=== PATIENT | male | born 1960 | race Caucasian/White ===

== ENCOUNTER 2023-04-20 10:18 | Outpatient (CLI) | payer SELFPAY | END 2023-04-20 10:19 | disposition home or self-care (01) | PROVIDERS: PCP Family Medicine; Visit Provider Physician Assistant Medical | DX: Z00.00 Encounter for general adult medical examination without abnormal findings (principal); I10 Essential (primary) hypertension; R20.0 Anesthesia of skin; R73.03 Prediabetes; E78.5 Hyperlipidemia, unspecified; E66.9 Obesity, unspecified; Z12.5 Encounter for screening for malignant neoplasm of prostate; Z13.29 Encounter for screening for other suspected endocrine disorder | CPT/HCPCS: 80053; 80061; 82607; 84153; 84443; 87086 ==

== ENCOUNTER 2025-01-03 07:30 | Outpatient (RCR) | payer OTHER, SELFPAY | END 2025-05-03 23:59 | disposition home or self-care (01) | PROVIDERS: PCP Physician Assistant Medical; Visit Provider Orthopaedic Surgery | DX: M54.12 Radiculopathy, cervical region (principal); M79.601 Pain in right arm; M25.511 Pain in right shoulder; Z51.89 Encounter for other specified aftercare | CPT/HCPCS: 97032; 97110; 97140; 97162 ==

== ENCOUNTER 2025-01-08 06:57 | Outpatient (CLI) | payer OTHER, SELFPAY ==
--- NOTE | 2025-01-08 07:15 | CRLHL7_ITS ---
For Patients: As a result of the Century Cures Act, medical imaging exams and procedure reports are released immediately into your electronic medical record. You may view this report before your referring provider. If you have questions, please contact your health care provider. INDICATION: Radiculopathy. COMPARISON: 12/14/2024. Technique Sagittal T1, T2, and STIR sequences. Axial T2/gradient sequences. FINDINGS: Straightening of the normal cervical lordosis. Otherwise, normal vertebral body facet alignment. No fractures. No vertebral body loss of height. No spondylolisthesis. No ligamentous injury. No suspicious osseous lesions. Normal cord signal. No intradural mass or lesion. C1-2: No spinal canal narrowing. C2-3: Mild generation posterior disc bulge. No narrowing of spinal canal. Uncovertebral joint hypertrophy results in moderate narrowing of left neural foramen. No narrowing of the right neural foramen. C3-4: Disc degeneration broad-based disc osteophyte complex. Moderate narrowing of spinal canal. Moderate severe narrowing of the bilateral foramina. Potential impingement of the C4 nerve roots. C4-5: Disc degeneration and shallow right paracentral disc bulge or disc osteophyte complex. Mild narrowing of spinal canal. Moderate severe right and moderate left neural foraminal narrowing. Potential impingement of the right C5 nerve root. C5-6: Disc generation broad-based disc osteophyte complex. Moderate narrowing of spinal canal. Moderate severe narrowing of bilateral foramina. Potential impingement of the C6 nerve roots. C6-7: Disc generation and posterior disc bulge or disc osteophyte complex. Moderate to severe narrowing of spinal canal. Moderate severe narrowing of the bilateral foramina potential impingement of the C7 nerve roots. C7-T1: No spinal canal or neural foraminal narrowing. IMPRESSION: 1. Straightening of the normal cervical lordosis. Otherwise, normal alignment. No fractures. 2. Normal cord signal. 3. At C2-3, moderate narrowing of the left neural foramen. 4. At C3-4, moderate narrowing of the spinal canal. Moderate to severe narrowing of the bilateral neural foramina 5. At C4-5, moderate to severe right and moderate left neural foraminal narrowing. 6. At C5-6, moderate narrowing of the spinal canal. Moderate to severe narrowing of the bilateral neural foramina 7. At C6-7, moderate to severe narrowing of the spinal canal and bilateral neural foramina Dictated by Trip Garza MD @ 01/08/2025 2:43:21 PM (Electronically Signed)
== END 2025-01-08 06:58 | disposition home or self-care (01) ==
PROVIDERS: PCP Physician Assistant Medical; Visit Provider Orthopaedic Surgery
DX: M54.12 Radiculopathy, cervical region (principal); M50.21 Other cervical disc displacement, high cervical region; M50.221 Other cervical disc displacement at C4-C5 level; M50.222 Other cervical disc displacement at C5-C6 level; M50.223 Other cervical disc displacement at C6-C7 level; V89.2XXA Person injured in unspecified motor-vehicle accident, traffic, initial encounter
CPT/HCPCS: 72141